=== PATIENT | female | born 1995 | race Caucasian/White ===

== ENCOUNTER 2019-09-08 07:37 | Emergency (ER) | payer BC, OTHER ==
[~2019-09-08] VITALS: Ht 165.1 cm; Wt 99.1 kg
[~2019-09-08 07:37] MED LIST: ALBU8HFA INH
[2019-09-08 07:41] VITALS: BP 132/78
[2019-09-08] MEDS ORDERED: dexamethasone sod phosphate 10mg/ml inj PO STA (08:04)
[2019-09-08] MEDS ORDERED: AMOX500C2 PO (08:05)
== END 2019-09-08 08:29 | disposition home or self-care (01) ==
LOC: ER 07:39
DX: J02.9 Acute pharyngitis, unspecified (principal); R21 Rash and other nonspecific skin eruption; H92.02 Otalgia, left ear; Z79.899 Other long term (current) drug therapy
CPT/HCPCS: 99283; J1100

== ENCOUNTER 2021-09-21 14:34 | Emergency (ER) | payer BC ==
[~2021-09-21] VITALS: Ht 165.1 cm; Wt 100.0 kg
[~2021-09-21 14:34] MED LIST changes: +BISA-78 PO; +MELO-100 PO; +ONDA8TAB6 PO; +PANT-47 PO
[2021-09-21 14:37] VITALS: BP 141/90
[2021-09-21] MEDS ORDERED: HYDR-3964 PO (16:10)
[2021-09-21] MEDS ORDERED: HYDROcodone/acetaminophen 10/325mg tab PO ONE (16:10)
[2021-09-21] MEDS ORDERED: ondansetron 4mg rapidly disintigrating tab PO ONE (16:10)
[2021-09-21] MEDS ORDERED: ONDA4TAB12 PO (16:10)
== END 2021-09-21 16:33 | disposition home or self-care (01) ==
LOC: ER 14:34
DX: S52.592A Other fractures of lower end of left radius, initial encounter for closed fracture (principal); S00.81XA Abrasion of other part of head, initial encounter; S20.211A Contusion of right front wall of thorax, initial encounter; W18.39XA Other fall on same level, initial encounter; Y93.89 Activity, other specified; Y92.89 Other specified places as the place of occurrence of the external cause; Y99.8 Other external cause status
CPT/HCPCS: 29125; 71045; 73110; 99284

== ENCOUNTER 2021-12-17 07:43 | Inpatient (IN) | payer BC ==
[~2021-12-17] VITALS: Ht 165.1 cm; Wt 96.8 kg
[~2021-12-17 07:43] MED LIST changes: +ONDA4TAB12 PO
[2021-12-17] MEDS ORDERED: ketorolac tromethamine 15mg/ml inj. IV ONE (08:45)
[2021-12-17] MEDS ORDERED: ondansetron/PF 4mg/2ml inj IV ONE (08:45)
[2021-12-17] MEDS ORDERED: normal saline 1000ML IV soln IVB ONE (08:45)
[2021-12-17 08:46] LABS: BASOPHILS % (AUTO) 0.5 % (0-1); EOSINOPHILS # (AUTO) 0.1 X10'3 (0-0.9); HEMATOCRIT 40.7 % (35.0-45.0); HEMOGLOBIN 14.3 g/dl (12.0-16.0); LYMPHOCYTES # (AUTO) 1.5 X10'3 (1.1-4.8); LYMPHOCYTES % (AUTO) 26.3 % (21-51); MEAN CORPUSCULAR HEMOGLOBIN 31.1 PG (27.0-31.0); MEAN CORPUSCULAR HGB CONC 35.2 g/dL (33.0-36.5); MEAN CORPUSCULAR VOLUME 88.5 FL (78-98); MEAN PLATELET VOLUME 9.1 FL (7.4-10.4); MONOCYTES # (AUTO) 0.7 X10'3 (0-0.9); MONOCYTES % (AUTO) 11.6 % (2-12); NEUTROPHILS # (AUTO) 3.4 X10'3 (1.8-7.7); NEUTROPHILS % (AUTO) 59.6 % (42-75); PLATELET COUNT 225 X10'3 (140-440); RED CELL DISTRIBUTION WIDTH 12.1 % (11.5-14.5); WHITE BLOOD COUNT 5.6 X10'3 (4.5-11.0)
[2021-12-17 08:57] LABS: ALANINE AMINOTRANSFERASE 47 U/L (12-78); ALBUMIN 4.1 G/DL (3.4-5.0); ALBUMIN/GLOBULIN RATIO 1.1 (1.1-1.5); ALKALINE PHOSPHATASE 53 IU/L (46-116); ANION GAP 11 (8-16); ASPARTATE AMINO TRANSFERASE 27 U/L (10-37); BILIRUBIN,TOTAL 0.8 MG/DL (0.1-1.0); BLOOD UREA NITROGEN 7 MG/DL (7-18); CALCIUM 8.9 MG/DL (8.5-10.1); CHLORIDE 103 MMOL/L (99-107); CREATININE 0.78 MG/DL (0.40-0.90); GLUCOSE 78 MG/DL (70-104); LIPASE 54 U/L (73-393); POTASSIUM 3.7 MMOL/L (3.5-5.1); SODIUM 137 MMOL/L (135-145); TOTAL CARBON DIOXIDE 22.9 MMOL/L (24-32); TOTAL PROTEIN 7.7 G/DL (6.4-8.2); eGFR 90 ML/MIN
[2021-12-17 09:01] LABS: HCG SERUM QL NEGATIVE
[2021-12-17 11:27] LABS: CLARITY,URINE CLOUDY (Clear); COLOR,URINE YELLOW (Yellow); GLUCOSE, URINE NEGATIVE (Neg); KETONES,URINE >=80 mg/dl (Neg); LEUKOCYTE ESTERASE ,URINE NEGATIVE (Neg); NITRITES, URINE NEGATIVE (Neg); OCCULT BLOOD,URINE NEGATIVE (Neg); PROTEIN,URINE NEGATIVE (Neg); UROBILINOGEN,URINE 0.2 E.U/dL (0.2-1.0)
[2021-12-17 11:36] LABS: UA COLLECTION TYPE NON-SPECIFIED
[2021-12-17 11:37] LABS: MUCUS STRANDS MANY /LPF (Neg); SQUAMOUS EPITHELIAL CELL,UR MANY /LPF (FEW)
[2021-12-17 11:38] LABS: BACTERIA,URINE 2+ /HPF (Neg); RBC,URINE 0-2 /HPF (0-2); WBC,URINE 0-4 /HPF (0-4)
[2021-12-17] MEDS ORDERED: piperacillin/tazo 3.375gm/50ml 50 ML IV ONE (11:50)
[2021-12-17] MEDS ORDERED: PHEN37.590 PO (13:58)
[2021-12-17] MEDS ORDERED: magnesium Cl slow-release 64mg tablet PO PRN (15:45)
[2021-12-17] MEDS ORDERED: acetaminophen 325mg tablet PO PRN ×2 (15:45)
[2021-12-17] MEDS ORDERED: HYDROcodone/acetaminophen 10/325mg tab PO PRN (15:45)
[2021-12-17] MEDS ORDERED: magnesium 4gm in 100ml NS 100 ML IV PRN (15:45)
[2021-12-17] MEDS: normal saline 1000ml 1,000 ML IV SCH (15:45)
[2021-12-17] MEDS ORDERED: potassium CL 10mEq/100ml bag 100 ML IV PRN (15:45)
[2021-12-17] MEDS ORDERED: potassium Cl 20 mEq SR tablet PO PRN ×2 (15:45)
[2021-12-17] MEDS ORDERED: bisacodyl 10mg suppository rectal RC PRN (15:45)
[2021-12-17] MEDS ORDERED: diphenhydrAMINE 25mg capsule PO PRN (15:45)
[2021-12-17] MEDS ORDERED: magnesium 2GM in 50ml NS 50 ML IV PRN (15:45)
[2021-12-17] MEDS ORDERED: morphine 2 MG/ML inj. syringe IV PRN ×2 (15:45)
[2021-12-17] MEDS ORDERED: mag hydrox/Alum hydrox/simeth 30ml oral suspension PO PRN (15:45)
[2021-12-17] MEDS ORDERED: magnesium hydroxide 30ml (MOM) UD suspension PO PRN (15:45)
[2021-12-17] MEDS: piperacillin/tazo 3.375gm/50ml 50 ML IV SCH (17:29)
--- NOTE | 2021-12-17 17:35 | NUR ---
1730 2 grams of mg given for runs of vtach 1732 pt in VTACH shocked at [address] 1735 pt to label printer with staff RT following with vent refer to code chart for rest of charting Addendum: 12/17/21 at 2128 by RBOLT Silver Forrester RN meant to document this note on another patient. Perhaps bed 5. Unsure of patient name.
--- NOTE | 2021-12-17 17:53 | NUR ---
Blake now covid test done and was negative. call made to Dr. Pond to confirm that she can be taken out of isolation. pt stated that she had covid in middle of october.
--- NOTE | 2021-12-17 18:37 | NUR ---
Pt resting comfortably in bed. Hospitalist at bedside examining patient.
[2021-12-17] MEDS: ondansetron/PF 4mg/2ml inj IV PRN (18:40)
[2021-12-17] MEDS: docusate sod 100mg capsule PO SCH (21:19)
[2021-12-17] MEDS: K and/or MAG REPLACEMENT MC SCH (21:20)
--- NOTE | 2021-12-17 21:28 | NUR ---
Attempted to call report to ortho and was on hold for 10 minutes. Will attempt to call back.
[2021-12-17 21:36] LABS: CLARITY,URINE CLEAR (Clear); COLOR,URINE YELLOW (Yellow); GLUCOSE, URINE NEGATIVE (Neg); KETONES,URINE >=80 mg/dl (Neg); LEUKOCYTE ESTERASE ,URINE NEGATIVE (Neg); NITRITES, URINE NEGATIVE (Neg); OCCULT BLOOD,URINE NEGATIVE (Neg); PROTEIN,URINE NEGATIVE (Neg); UROBILINOGEN,URINE 0.2 E.U/dL (0.2-1.0)
[2021-12-17 21:39] LABS: UA COLLECTION TYPE NON-SPECIFIED
[2021-12-17] MEDS: diatr meglu/diatrizoate 30ml oral sol.-(3 dose) bottle PO SCH (21:47)
--- NOTE | 2021-12-17 21:50 | NUR ---
Gave report to recieving RN on ortho
[2021-12-17 22:30] VITALS: BP 112/65
--- NOTE | 2021-12-17 22:30 | NUR ---
Received pt from ER. Vitals taken and needs met.
[2021-12-18] MEDS: piperacillin/tazo 3.375gm/50ml 50 ML IV SCH ×3 (00:11→16:17)
[2021-12-18] MEDS: ondansetron/PF 4mg/2ml inj IV PRN (00:14)
[2021-12-18] MEDS: HYDROcodone/acetaminophen 5mg/325mg tablet PO PRN ×4 (05:05→20:11)
[2021-12-18 06:00] VITALS: BP 100/62
[2021-12-18 06:33] LABS: BASOPHILS % (AUTO) 0.6 % (0-1); EOSINOPHILS # (AUTO) 0.2 X10'3 (0-0.9); EOSINOPHILS % (AUTO) 3.4 % (0-6); HEMATOCRIT 37.7 % (35.0-45.0); LYMPHOCYTES # (AUTO) 1.9 X10'3 (1.1-4.8); LYMPHOCYTES % (AUTO) 42.2 % (21-51); MEAN CORPUSCULAR HEMOGLOBIN 30.6 PG (27.0-31.0); MEAN CORPUSCULAR HGB CONC 34.4 g/dL (33.0-36.5); MEAN PLATELET VOLUME 9.6 FL (7.4-10.4); MONOCYTES # (AUTO) 0.6 X10'3 (0-0.9); MONOCYTES % (AUTO) 12.7 % (2-12); NEUTROPHILS # (AUTO) 1.9 X10'3 (1.8-7.7); NEUTROPHILS % (AUTO) 41.1 % (42-75); PLATELET COUNT 209 X10'3 (140-440); RED BLOOD COUNT 4.24 X10'6 (4.20-5.60); RED CELL DISTRIBUTION WIDTH 11.9 % (11.5-14.5); WHITE BLOOD COUNT 4.6 X10'3 (4.5-11.0)
--- NOTE | 2021-12-18 06:56 | NUR ---
Patient in room ORTHO 4018. I have received report from SARAH Beltrán and had the opportunity to ask questions and assume patient care.
[2021-12-18 07:08] LABS: ALANINE AMINOTRANSFERASE 33 U/L (12-78); ALBUMIN 3.2 G/DL (3.4-5.0); ALKALINE PHOSPHATASE 41 IU/L (46-116); ANION GAP 13 (8-16); ASPARTATE AMINO TRANSFERASE 15 U/L (10-37); BILIRUBIN,TOTAL 0.5 MG/DL (0.1-1.0); BLOOD UREA NITROGEN 9 MG/DL (7-18); BUN/CREATININE RATIO 11.3 (6.6-38.0); CALCIUM 8.5 MG/DL (8.5-10.1); CHLORIDE 107 MMOL/L (99-107); CHOL/HDL RATIO 4.1 (0.00-4.99); CHOLESTEROL 131 MG/DL (0-200); GLUCOSE 77 MG/DL (70-104); HDL CHOLESTEROL 32 MG/DL (35-60); LDL CHOLESTEROL 79 MG/DL (50-100); PHOSPHORUS 4.5 MG/DL (2.3-4.5); POTASSIUM 3.7 MMOL/L (3.5-5.1); SODIUM 140 MMOL/L (135-145); TOTAL CARBON DIOXIDE 19.8 MMOL/L (24-32); TOTAL PROTEIN 6.4 G/DL (6.4-8.2); TRIGLYCERIDES 105 MG/DL (20-135); eGFR 87 ML/MIN
[2021-12-18] MEDS: diatr meglu/diatrizoate 30ml oral sol.-(3 dose) bottle PO SCH ×2 (07:18→09:48)
[2021-12-18] MEDS: docusate sod 100mg capsule PO SCH ×2 (07:18→20:11)
[2021-12-18] MEDS: K and/or MAG REPLACEMENT MC SCH (08:00)
[2021-12-18 10:00] VITALS: BP 119/72
[2021-12-18] MEDS ORDERED: iohexol 300mg/ml 100ml inj. ONE (10:06)
[2021-12-18 14:00] VITALS: BP 96/54
--- NOTE | 2021-12-18 15:57 | NUR ---
Notified of patient's request for a diet. The surgeon is not sure yet if he will take her to surgery today or not.
[2021-12-18] MEDS: normal saline 1000ml 1,000 ML IV SCH ×2 (16:17→19:16)
[2021-12-18 19:00] VITALS: BP 91/61
--- NOTE | 2021-12-18 19:11 | NUR ---
Problems reprioritized. Patient report given, questions answered & plan of care reviewed with SARAH Ballesteros.
[2021-12-18] MEDS ORDERED: HYDR-3965 PO (19:30)
[2021-12-18] MEDS ORDERED: PANT40TA54 PO (19:30)
--- NOTE | 2021-12-18 19:32 | NUR ---
Per Hannah oliver RN/Dr. Araujo pt to eat a regular diet and to be discharged home tonight. Pt to call his office tomorrow to f/u. Pt is aware of d/c orders, pt stated "I've eaten [place] food my boyfriend brought in" Pt stated she has tolerated it, with no complaints.
[2021-12-18] MEDS ORDERED: AMOX-419 PO (19:40)
[2021-12-18] MEDS ORDERED: LACT1CAP26 PO (19:40)
--- NOTE | 2021-12-18 20:35 | NUR ---
All discharge instructions given, questions answered, pt to f/u and will make own apt with Pt discharged with all belongings. Pt discharged with significant other. Addendum: 12/18/21 at 2131 by Lesli Anderson RN Amended: Links added.
== END 2021-12-18 20:30 | disposition home or self-care (01) | DRG 391 ==
LOC: ER 07:44 → ED HOLD 15:49 → ORTHO 4S 22:20
PROVIDERS: ADMIT Family Medicine; ATTEND Family Medicine
PROC: BW211ZZ Computerized Tomography (CT Scan) of Abdomen and Pelvis using Low Osmolar Contrast (ICD-10-PCS; principal; 2021-12-18)
DX: R10.11 Right upper quadrant pain (principal); U07.1 COVID-19; F17.210 Nicotine dependence, cigarettes, uncomplicated; Z71.6 Tobacco abuse counseling
CPT/HCPCS: 36415; 74176; 74177; 76856; 80053; 80061; 81001; 81003; 83036; 83605; 83690; 83735; 84100; 84703; 85025; 85730; 86885; 86900; 86901; 87040; 87081; 87635; 93976; 96361; 96374; 96375; 99285; C9803; G0378; J1885; J2405; J2543; J7030; Q9963; Q9967